=== PATIENT | female | born 1985 | race African-American/Black ===

== ENCOUNTER 2016-12-24 23:04 | Emergency (ER) | payer MEDICARE, OTHER ==
[~2016-12-24] VITALS: Ht 165.1 cm; Wt 95.0 kg
[2016-12-24 23:05] VITALS: BP 132/90; PULSE 94; RESP 16; TEMP 98.8; O2SAT 99
--- NOTE | 2016-12-24 23:44 | PD ---
HPI Chief Complaint: Pain: Acute or Chronic Time Seen by Provider: 23:35 Travel History International Travel<30 days: No Contact w/Intl Traveler<30days: No Traveled to known affect area: No History of Present Illness HPI This is a 31-year-old female with history of schizophrenia who presents for evaluation of vaginal bleeding. Symptoms started this morning. She was concerned that she may have a miscarriage. She says that she recently had unprotected sex. Her last menstrual period was December 02. She does endorse mild pelvic cramps. In addition the patient is complaining of some lower back pain after lifting upper back. Symptoms are mild, aggravated by lifting a bag. She has no other complaints. History is somewhat limited secondary to schizophrenia. PFSH Past Medical History Hx Anticoagulant Therapy: No Blood Disorders: No Anxiety: Yes Depression: Yes Cancer: No Cardiovascular Problems: No Cerebrovascular Accident: No Diabetes: No Diminished Hearing: No Endocrine: No Gastrointestinal Disorders: No Genitourinary: No Headaches: No Immune Disorder: No Musculoskeletal: No Neurologic: No Psychiatric: No Reproductive: No Respiratory: No Immunizations Current: No (UNKNOWN) Schizophrenia: Yes Seizures: No ?: Unknown LMP: 12/02/16 : 6 Para: 6 Miscarriage: 0 : 0 Past Surgical History Section: Yes (X 2) Hysterectomy: No Other Surgery: Yes (hand surgery) Social History Alcohol Use: No Tobacco Use: Yes (1/2 PPD) Substance Use: No Allergies-Medications (Allergen,Severity, Reaction): Coded Allergies: No Known Allergies (Verified , 12/24/16) Reported Meds & Prescriptions Reported Meds & Active Scripts Active No Active Prescriptions or Reported Medications Review of Systems Except as stated in HPI: all other systems reviewed are Neg Physical Exam Narrative GENERAL: Well-nourished female in no acute distress, BMI 35 SKIN: Warm and dry. HEAD: Atraumatic. Normocephalic. EYES: Pupils equal and round. No scleral icterus. No injection or drainage. ENT: No nasal bleeding or discharge. Mucous membranes pink and moist. NECK: Trachea midline. No JVD. CARDIOVASCULAR: Regular rate and rhythm. No murmur appreciated. RESPIRATORY: No accessory muscle use. Clear to auscultation. Breath sounds equal bilaterally. GASTROINTESTINAL: Abdomen soft, non-tender, nondistended. Hepatic and splenic margins not palpable. Pelvic examination performed in the presence of a female nurse: The patient has dried blood on her pants. There is some blood noted in the vaginal canal. There is no abnormal discharge. No cervical motion tenderness or adnexal tenderness. MUSCULOSKELETAL: No obvious deformities. No tenderness to palpation along the neck or back, no CVA tenderness. NEUROLOGICAL: Awake and alert. No obvious cranial nerve deficits. Motor grossly within normal limits. Normal speech. Data Data Last Documented VS Vital Signs Date Time Temp Pulse Resp B/P Pulse Ox O2 Delivery O2 Flow Rate FiO2 12/24/16 23:05 98.8 94 16 132/90 99 Room Air Orders Urinalysis - C+S If Indicated (12/24/16 23:12) Ed Urine Pregnancytest Poc (12/24/16 23:12) Gc And Chlamydia Pcr (12/24/16 23:40) Wet Prep Profile (12/24/16 23:40) Urine Culture (12/24/16 23:15) Azithromycin Powd Pack (Zithromax Powd P (12/25/16 01:30) Ceftriaxone Inj (Rocephin Inj) (12/25/16 01:30) Lidocaine 1% Inj (50 Ml) (Xylocaine 1% I (12/25/16 01:30) Metronidazole (Flagyl) (12/25/16 01:30) Labs Laboratory Tests Test 12/24/16 12/24/16 23:15 23:55 Urine Color YELLOW Urine Turbidity HAZY Urine pH 6.0 Urine Specific [place] 1.033 Urine Protein 30 mg/dL Urine Glucose (UA) NEG mg/dL Urine Ketones TRACE mg/dL Urine Occult Blood MOD Urine Nitrite NEG Urine Bilirubin NEG Urine Urobilinogen 2.0 MG/DL Urine Leukocyte Esterase TRACE Urine RBC /hpf Urine WBC 13 /hpf Urine Squamous Epithelial 3 /hpf Cells Urine Bacteria RARE /hpf Urine Mucus FEW /lpf Microscopic Urinalysis Comment CULTURE INDICATED Clue Cells (Wet Prep) NONE SEEN Vaginal Trichomonas (Wet Prep) PRESENT Vaginal Yeast (Wet Prep) NONE SEEN MDM Medical Decision Making Medical Screen Exam Complete: Yes Emergency Medical Condition: Yes Medical Record Reviewed: Yes Differential Diagnosis Dysmenorrhea, normal menstrual period, pelvic inflammatory disease, retained foreign body, cervicitis, miscarriage, threatened Narrative Course This is a 31-year-old female with history of schizophrenia who presents with one -day history of vaginal bleeding and mild cramping of the pelvic region. She reports that the cramping feels like her menstrual cramps. She reports that her last menstrual period was December 02 and so it appears that she is concerned because this menstrual period Is slightly early. She is a very poor historian secondary to poor thought process from her schizophrenia illness and this has made it difficult to determine her true concerns. A urine test was negative. She also has mild lower back strain after lifting a bag. Examination is completely unremarkable and I suspect that she has a muscle strain. [id number] naproxen or ibuprofen is recommended. Urine analysis reveals blood, likely contaminate, as well as some pyuria so she will be treated pending culture results with Macrobid. Her wet prep is also positive for trichomoniasis and so therefore she is being treated with Flagyl here and also empirically azithromycin and Rocephin pending chlamydia and gonorrhea results. She has no clinical evidence of pelvic inflammatory disease. Stable for discharge. Diagnosis Primary Impression: Trichomoniasis Additional Impressions: Pyuria Lumbar strain Qualified Code: S39.012A - Lumbar strain, initial encounter Additional Instructions: Medication as prescribed. Notify sexual partners of positive trichomoniasis test and have them follow-up with primary care or at the health Department for STD testing. Avoid strenuous activity. Tylenol or Motrin for discomfort. Return for any emergent medical conditions. Med/Other Pt SpecificInfo: Prescription(s) given Scripts Nitrofurantoin Monohydrate Macrocrystals (Macrobid)100 Mg [id number] Mg PO BID 7 Days Ref 0 Prov:Estrada Schulz MD 12/25/16 Disposition: 01 DISCHARGE HOME Condition: Stable Sergey Whitten Dec 24, 2016 23:44
[2016-12-24 23:46] LABS: BACTERIA, URINE RARE /hpf; BLOOD, URINE MOD (NEG); COMMENT (UR) CULTURE INDICATED; CULTURE IF INDICATED CULTURE INDICATED; GLUCOSE,URINE NEG (NEG); KETONE, URINE TRACE mg/dL (NEG); MUCUS URINE FEW /lpf (OCC); NITRITE,URINE NEG (NEG); SQUAMOUS EPITHELIAL CELL URINE 3 /hpf (0-5); URINE COLOR YELLOW (YELLW/STRAW)
[2016-12-25] MEDS ORDERED: AZITHROMYCIN PWD FOR SUSP 1 GM PACKET PO ONE (01:30)
[2016-12-25] MEDS ORDERED: LIDOCAINE HCL 1% 50 ML VIAL IM ONE (01:30)
[2016-12-25] MEDS ORDERED: metroNIDAZOLE 500 MG TAB PO ONE (01:30)
[2016-12-25] MEDS ORDERED: cefTRIAXone 250 MG VIAL IM ONE (01:30)
[2016-12-25] MEDS ORDERED: MACR100C2 PO (01:35)
[2016-12-25 03:16] LABS: CHLAMYDIA PCR NOT DETECTED (NOT DETECT); NEISSERIA PCR NOT DETECTED (NOT DETECT)
== END 2016-12-25 02:10 | disposition home or self-care (01) ==
LOC: NEPK 23:04
DX: A59.9 Trichomoniasis, unspecified (principal); N39.0 Urinary tract infection, site not specified; B96.89 Other specified bacterial agents as the cause of diseases classified elsewhere; S39.012A Strain of muscle, fascia and tendon of lower back, initial encounter; X50.0XXA Overexertion from strenuous movement or load, initial encounter
CPT/HCPCS: 81001; 84703; 87086; 87210; 87491; 87591; 96372; 99284; J0696

== ENCOUNTER 2017-01-30 13:08 | Emergency (ER) | payer MEDICARE ==
[~2017-01-30 13:08] MED LIST: MACR100C2 PO
[2017-01-30 13:10] VITALS: BP 156/90; PULSE 80; RESP 20; TEMP 98.9; O2SAT 99
[2017-01-30] MEDS ORDERED: IBUP800T23 PO (14:28)
--- NOTE | 2017-01-30 14:28 | PD ---
HPI Chief Complaint: Skin Problem Time Seen by Provider: 14:24 Travel History International Travel<30 days: No Contact w/Intl Traveler<30days: No Traveled to known affect area: No History of Present Illness HPI 31-year-old female presents to the emergency Department with complaint of a lump to her left wrist 3 weeks. She says the lump has been there for a while but in the last 3 weeks that has gotten bigger. She reports that it is tender to touch. Denies fever, vomiting. Denies paresthesias, loss of sensation, decreased range of motion, decreased strength to the affected extremity. Has not taken any medications or tried any treatments to repeat her symptoms. No known allergies. Has no other medical complaints. No other modifying factors or associated signs and symptoms. PFSH Past Medical History Hx Anticoagulant Therapy: No Blood Disorders: No Anxiety: Yes Depression: Yes Cancer: No Cardiovascular Problems: No Cerebrovascular Accident: No Diabetes: No Diminished Hearing: No Endocrine: No Gastrointestinal Disorders: No Genitourinary: No Headaches: No Immune Disorder: No Musculoskeletal: No Neurologic: No Psychiatric: No Reproductive: No Respiratory: No Immunizations Current: No (UNKNOWN) Schizophrenia: Yes Seizures: No : 6 Para: 6 Miscarriage: 0 : 0 Past Surgical History Section: Yes (X 2) Hysterectomy: No Other Surgery: Yes (hand surgery) Social History Alcohol Use: No Tobacco Use: Yes (1/2 PPD) Substance Use: No Allergies-Medications (Allergen,Severity, Reaction): Coded Allergies: No Known Allergies (Verified , 01/30/17) Reported Meds & Prescriptions Reported Meds & Active Scripts Active Ibuprofen 800 Mg Tab 800 Mg PO Q6HR PRN Macrobid (Nitrofurantoin Monoh/Nitrofur Macro) 100 Mg Cap 100 Mg PO BID 7 Days Review of Systems Except as stated in HPI: all other systems reviewed are Neg Physical Exam Narrative GENERAL: Well-nourished, well-developed patient, in no acute distress SKIN: There is a soft lump to the dorsal aspect of the left wrist which measures about 1.5 cm in diameter. The area is without erythema or warmth to touch. No signs of infection.. Left wrist is with full range of motion. Left upper extremity is supple and nonsense with 2+ radial pulse and sensory intact; without erythema or edema. HEAD: Atraumatic. Normocephalic. EYES: Pupils equal and round. No scleral icterus. No injection or drainage. ENT: Mucosa pink and moist. Airway patent. NECK: Trachea midline. CARDIOVASCULAR: Regular rate. RESPIRATORY: No accessory muscle use. GASTROINTESTINAL: Round. MUSCULOSKELETAL: No obvious deformities. No clubbing. No cyanosis. No edema. NEUROLOGICAL: Awake and alert. Oriented 3. No obvious cranial nerve deficits. Motor grossly within normal limits. Normal speech. PSYCHIATRIC: Appropriate mood and affect; insight and judgment normal. Data Data Last Documented VS Vital Signs Date Time Temp Pulse Resp B/P Pulse Ox O2 Delivery O2 Flow Rate FiO2 01/30/17 13:10 98.9 80 20 156/90 99 Room Air MDM Medical Decision Making Medical Screen Exam Complete: Yes Emergency Medical Condition: Yes Medical Record Reviewed: Yes Differential Diagnosis Ganglion cyst, contusion, nonspecific lump of rest Narrative Course 31-year-old female with a ganglion cyst to the dorsal aspect of the left wrist. No signs of infection. Instructed patient to follow up with hand surgeon. Ibuprofen prescribed for home. Patient verbalizes understanding and agreement with treatment plan. Patient is medically cleared and stable for discharge. Discussed reasons to return to the emergency department. Instructed patient to follow up with primary care provider. Patient agrees with treatment plan. The patients vital signs are stable and the patient is stable for outpatient follow- up and treatment. Patient discharged home, stable and in no acute distress. Diagnosis Primary Impression: Ganglion cyst Referrals: Hand Surgeon Primary Care Physician Patient Instructions: Ganglion Cysts (ED), General Instructions Departure Forms: Tests/Procedures, Work Release Enter return to work date: January 31, 2017 Additional Instructions: Ibuprofen or Tylenol as directed nausea for pain and inflammation Follow-up with primary care provider Follow-up with hand surgeon Return to the emergency department immediately with worsening of symptoms, , particularly as discussed Med/Other Pt SpecificInfo: Prescription(s) given Scripts Ibuprofen 800 Mg Hbv220 Mg PO Q6HR PRN (PAIN) #30 TAB Ref 0 Prov:Irasema Dc 01/30/17 Disposition: 01 DISCHARGE HOME Condition: Stable Irasema Dc January 30, 2017 14:28
== END 2017-01-30 15:05 | disposition home or self-care (01) ==
LOC: NEPK 13:08
DX: M67.432 Ganglion, left wrist (principal); F17.210 Nicotine dependence, cigarettes, uncomplicated; F20.9 Schizophrenia, unspecified; F41.8 Other specified anxiety disorders
CPT/HCPCS: 99282

== ENCOUNTER 2017-03-30 01:03 | Inpatient (IN) | payer MEDICARE ==
[~2017-03-30] VITALS: Ht 165.1 cm; Wt 127.3 kg
[~2017-03-30 01:03] MED LIST changes: +IBUP800T23 PO
[2017-03-30 02:11] LABS: AMPHETAMINE, URINE NEG (NEG); BARBITURATES, URINE NEG (NEG); COCAINE, URINE NEG (NEG)
[2017-03-30 02:58] LABS: AUTOMATED NEUTROPHIL # 2.9 TH/MM3 (1.8-7.7); BASOPHIL # 0.1 TH/MM3 (0-0.2); BASOPHIL % 0.9 % (0.0-2.0); EOSINOPHIL # 0.4 TH/MM3 (0-0.4); EOSINOPHIL % 6.9 % (0.0-4.0); HEMATOCRIT 35.5 % (35.0-46.0); HEMO FLAGS DIFF FINAL; LYMPH % 39.9 % (9.0-44.0); LYMPHOCYTE # 2.6 TH/MM3 (1.0-4.8); MEAN CELL VOLUME 85.8 FL (80.0-100.0); MEAN CORPUSCULAR HEMOGLOBIN 28.9 PG (27.0-34.0); MEAN CORPUSCULAR HGB CONC 33.7 % (32.0-36.0); MONO % 7.7 % (0.0-8.0); NEUT % 44.6 % (16.0-70.0); PLATELET COUNT 245 TH/MM3 (150-450); RED BLOOD COUNT 4.14 MIL/MM3 (4.00-5.30); RED CELL DISTRIBUTION WIDTH 15.1 % (11.6-17.2); WHITE BLOOD COUNT 6.4 TH/MM3 (4.0-11.0)
[2017-03-30 03:13] LABS: ALT (GPT) 28 U/L (10-53); ANION GAP 7 MEQ/L (5-15); AST (GOT) 16 U/L (15-37); BICARBONATE 26.5 MEQ/L (21.0-32.0); BLOOD UREA NITROGEN 10 MG/DL (7-18); CHLORIDE 109 MEQ/L (98-107); GLOMERULAR FILTRATION RATE 67 ML/MIN (>89); POTASSIUM 3.6 MEQ/L (3.5-5.1); SODIUM (NA) 142 MEQ/L (136-145)
[2017-03-30 03:15] LABS: ACETAMINOPHEN LESS THAN 2.0 MCG/ML (10.0-30.0); ALKALINE PHOSPHATASE 115 U/L (45-117); TOTAL BILIRUBIN ADULT 0.1 MG/DL (0.2-1.0)
--- NOTE | 2017-03-30 04:29 | PD ---
HPI Chief Complaint: Psychiatric Symptoms Time Seen by Provider: 04:18 Travel History International Travel<30 days: No Contact w/Intl Traveler<30days: No Traveled to known affect area: No History of Present Illness HPI 31-year-old black female presents to emergency department under a [place] act by PD. The patient was found sitting on the sun. She appeared to be unable to care for herself and therefore she was placed under [place] act. The patient here states that she had been living in a apartment with poor water and lights that did not work properly. She had decided to leave. The patient has packed her bags and left. The patient denies any suicidal or homicidal ideation. The patient's mother lives in a [facility]. She has or others and liver [facility]. The patient is a poor historian. She appears to be somewhat disorganized. Patient has poor insight and judgment. She does not appear to have the capacity to care for herself. She does state that she has a caregiver who is her payee. PFSH Past Medical History Hx Anticoagulant Therapy: No Blood Disorders: No Anxiety: Yes Depression: Yes Cancer: No Cardiovascular Problems: No Cerebrovascular Accident: No Diabetes: No Diminished Hearing: No Endocrine: No Gastrointestinal Disorders: No Genitourinary: No Headaches: No Immune Disorder: No Musculoskeletal: No Neurologic: No Psychiatric: No Reproductive: No Respiratory: No Immunizations Current: No (UNKNOWN) Schizophrenia: Yes Seizures: No : 6 Para: 6 Miscarriage: 0 : 0 Past Surgical History Section: Yes (X 2) Hysterectomy: No Other Surgery: Yes (hand surgery) Social History Alcohol Use: No Tobacco Use: Yes (1/2 PPD) Substance Use: No Allergies-Medications (Allergen,Severity, Reaction): Coded Allergies: No Known Allergies (Verified , 01/30/17) Reported Meds & Prescriptions Reported Meds & Active Scripts Active Ibuprofen 800 Mg Tab 800 Mg PO Q6HR PRN Macrobid (Nitrofurantoin Monoh/Nitrofur Macro) 100 Mg Cap 100 Mg PO BID 7 Days Review of Systems ROS Limitations: Poor Historian Except as stated in HPI: all other systems reviewed are Neg Physical Exam Narrative GENERAL: Well-nourished, well-developed patient. SKIN: Warm and dry. HEAD: Normocephalic and atraumatic. EYES: No scleral icterus. No injection or drainage. ENT: No nasal drainage noted. Mucous membranes pink. Airway patent. NECK: Supple, trachea midline. Moves head freely without obvious discomfort. CARDIOVASCULAR: Regular rate and rhythm without murmurs, gallops, or rubs. RESPIRATORY: Breath sounds equal bilaterally. No accessory muscle use. GASTROINTESTINAL: Abdomen soft, non-tender, nondistended. EXTREMITIES: No cyanosis or edema. BACK: Nontender without obvious deformity. No CVA tenderness. NEURO: Patient is alert and oriented. no sensorimotor deficits. Nonfocal. Normal speech. PSYCH: No delusions. No auditory or visual hallucinations. Patient has poor insight and judgment. She answers questions slowly. Data Data Orders Diet Regular Basic (03/30/17 Breakfast) Complete Blood Count With Diff (03/30/17 01:23) Comprehensive Metabolic Panel (03/30/17 01:23) Ed Urine Pregnancytest Poc (03/30/17 01:23) Psych Screen (03/30/17 01:23) Drug Screen, Random Urine (03/30/17 01:23) Alcohol (Ethanol) (03/30/17 01:23) Salicylates (Aspirin) (03/30/17 01:23) Tylenol (Acetaminophen) (03/30/17 01:23) Labs Laboratory Tests Test 03/30/17 03/30/17 01:30 02:45 Urine Opiates Screen NEG Urine Barbiturates Screen NEG Urine Amphetamines Screen NEG Urine Benzodiazepines Screen NEG Urine Cocaine Screen NEG Urine Cannabinoids Screen POS White Blood Count 6.4 TH/MM3 Red Blood Count 4.14 MIL/MM3 Hemoglobin 12.0 GM/DL Hematocrit 35.5 % Mean Corpuscular Volume 85.8 FL Mean Corpuscular Hemoglobin 28.9 PG Mean Corpuscular Hemoglobin 33.7 % Concent Red Cell Distribution Width 15.1 % Platelet Count 245 TH/MM3 Mean Platelet Volume 8.5 FL Neutrophils (%) (Auto) 44.6 % Lymphocytes (%) (Auto) 39.9 % Monocytes (%) (Auto) 7.7 % Eosinophils (%) (Auto) 6.9 % Basophils (%) (Auto) 0.9 % Neutrophils # (Auto) 2.9 TH/MM3 Lymphocytes # (Auto) 2.6 TH/MM3 Monocytes # (Auto) 0.5 TH/MM3 Eosinophils # (Auto) 0.4 TH/MM3 Basophils # (Auto) 0.1 TH/MM3 CBC Comment DIFF FINAL Differential Comment Sodium Level 142 MEQ/L Potassium Level 3.6 MEQ/L Chloride Level 109 MEQ/L Carbon Dioxide Level 26.5 MEQ/L Anion Gap 7 MEQ/L Blood Urea Nitrogen 10 MG/DL Creatinine 1.15 MG/DL Estimat Glomerular Filtration 67 ML/MIN Rate Random Glucose 86 MG/DL Calcium Level 8.7 MG/DL Total Bilirubin 0.1 MG/DL Aspartate Amino Transf 16 U/L (AST/SGOT) Alanine Aminotransferase 28 U/L (ALT/SGPT) Alkaline Phosphatase 115 U/L Total Protein 7.0 GM/DL Albumin 3.4 GM/DL Salicylates Level 3.1 MG/DL Acetaminophen Level LESS THAN 2.0 MCG/ML Ethyl Alcohol Level LESS THAN 3 MG/DL MDM Medical Decision Making Medical Screen Exam Complete: Yes Emergency Medical Condition: Yes Medical Record Reviewed: Yes Interpretation(s) Laboratory Tests Test 03/30/17 03/30/17 01:30 02:45 Urine Opiates Screen NEG Urine Barbiturates Screen NEG Urine Amphetamines Screen NEG Urine Benzodiazepines Screen NEG Urine Cocaine Screen NEG Urine Cannabinoids Screen POS White Blood Count 6.4 TH/MM3 Red Blood Count 4.14 MIL/MM3 Hemoglobin 12.0 GM/DL Hematocrit 35.5 % Mean Corpuscular Volume 85.8 FL Mean Corpuscular Hemoglobin 28.9 PG Mean Corpuscular Hemoglobin 33.7 % Concent Red Cell Distribution Width 15.1 % Platelet Count 245 TH/MM3 Mean Platelet Volume 8.5 FL Neutrophils (%) (Auto) 44.6 % Lymphocytes (%) (Auto) 39.9 % Monocytes (%) (Auto) 7.7 % Eosinophils (%) (Auto) 6.9 % Basophils (%) (Auto) 0.9 % Neutrophils # (Auto) 2.9 TH/MM3 Lymphocytes # (Auto) 2.6 TH/MM3 Monocytes # (Auto) 0.5 TH/MM3 Eosinophils # (Auto) 0.4 TH/MM3 Basophils # (Auto) 0.1 TH/MM3 CBC Comment DIFF FINAL Differential Comment Sodium Level 142 MEQ/L Potassium Level 3.6 MEQ/L Chloride Level 109 MEQ/L Carbon Dioxide Level 26.5 MEQ/L Anion Gap 7 MEQ/L Blood Urea Nitrogen 10 MG/DL Creatinine 1.15 MG/DL Estimat Glomerular Filtration 67 ML/MIN Rate Random Glucose 86 MG/DL Calcium Level 8.7 MG/DL Total Bilirubin 0.1 MG/DL Aspartate Amino Transf 16 U/L (AST/SGOT) Alanine Aminotransferase 28 U/L (ALT/SGPT) Alkaline Phosphatase 115 U/L Total Protein 7.0 GM/DL Albumin 3.4 GM/DL Salicylates Level 3.1 MG/DL Acetaminophen Level LESS THAN 2.0 MCG/ML Ethyl Alcohol Level LESS THAN 3 MG/DL Differential Diagnosis MDM: High Differential diagnoses: Schizophrenia, schizoaffective disorder, bipolar, anxiety, depression, adjustment reaction, mood disorder NOS, ODD, depressive disorder NOS, dementia, dementia with agitation, psychosis NOS, substance induced mood disorder, intermittent explosive disorder, Asperger syndrome, infection,electrolyte abnormality, malingering. Narrative Course Mental health screening discussed with the patient. Psychiatric screen ordered. The patient appears to be unable to care for herself. She appears to low functioning and unable to make clinical decisions. This is medical clearance for psychiatric admission, inability to care for herself Diagnosis Primary Impression: Medical clearance for psychiatric admission Additional Impression: inability to care for herself Condition: Stable Francisco J Bowman Mar 30, 2017 04:29
[2017-03-30 06:07] VITALS: BP 127/81; PULSE 66; RESP 19; O2SAT 99
[2017-03-30 13:52] VITALS: BP 128/81; PULSE 81; RESP 18; TEMP 98.6; O2SAT 97
--- NOTE | 2017-03-30 15:52 | PD ---
History of Present Illness Chief Complaint: Psychiatric Symptoms Time Seen by Provider: 15:30 Travel History International Travel<30 Days: No Contact w/Intl Traveler<30days: No Known affected area: No Legal Status Legal Status: Rowe Act Rowe Act Signed By: Mira Echavarria Rowe Act Comment: 03/29/2017 1430 PM History of Present Illness: History of Present Illness HPI 31-year-old black female with hx of schizophrenia who presents to emergency department under a Rowe act initiated by PD. The BA alleges that the patient had been found sitting in the sun for approximately 6 hours with out seeking halfway and that she was unable to answer questions posed to her. The patient reported to ED provider that she had been living in a apartment with poor water and lights that did not work properly. The patient packed her bags and left the apartment. Current toxicology is positive for cannabinoids. EMR is reviewed. She has had previous admissions to [facility] dating back to 2005. Her last admission was in 2014. In 2016 she was under a BA and was transferred to [facility]. Patient is seen in J pod. She is awake, obese female who is wearing hospital gown. Speech is low tone and difficult to understand. Her responses are sparse and with delay in her response. She maintains an intimidating and intense eye contact. Appears internally preoccupied and suspicious . She tells me that she [facility] [place] [facility] and that she was waiting for a ride, but no other information provided. She does not provide any person that we can contact for collateral information. PFSH Past Medical History Hx Anticoagulant Therapy: No Blood Disorders: No Anxiety: Yes Depression: Yes Cancer: No Cardiovascular Problems: No Cerebrovascular Accident: No Diabetes: No Diminished Hearing: No Endocrine: No Gastrointestinal Disorders: No Genitourinary: No Headaches: No Immune Disorder: No Musculoskeletal: No Neurologic: No Psychiatric: No Reproductive: No Respiratory: No Immunizations Current: No (UNKNOWN) Schizophrenia: Yes Seizures: No : 6 Para: 6 Miscarriage: 0 : 0 Past Surgical History Section: Yes (X 2) Hysterectomy: No Other Surgery: Yes (hand surgery) Psychiatric History Psychiatric History Hx Psychiatric Treatment: Hx of bipolar disorder and schizophrenia. Last [facility] visit Jul 09, 2016 for schizophrenia. History of Inpatient Treatment: Yes (Last hosp at [facility] in 2014. ) Guns or firearms in home: No (unknown) Social History Does not provide any information. Hx Alcohol Use: No Hx Tobacco Use: Yes (1/2 PPD) Hx Substance Use: Yes Substance Use Type: Marijuana, Nicotine/Cigarettes Hx of Substance Use Treatment: No Family Psychiatric History Does not provide any information Allergies-Medications (Allergen,Severity, Reaction): Coded Allergies: No Known Allergies (Verified , 01/30/17) Reported Meds & Prescriptions Reported Meds & Active Scripts Active Ibuprofen 800 Mg Tab 800 Mg PO Q6HR PRN Macrobid (Nitrofurantoin Monoh/Nitrofur Macro) 100 Mg Cap 100 Mg PO BID 7 Days Review of Systems ROS Limitations: Uncooperative Exam Alert: Yes [place]: Person, Place Mood: Other Affect: Restricted Speech: Clear (minimal responses. ) Eye Contact: Staring Memory Intact: Comment (Unable to test) Delusions: Yes (appears suspicious and paranoid) Suicidal: Ideation (she does nto answer) Homicidal: Ideation (does nto answer ) Insight/Judgement Poor. Poor. MDM Medical Decision Making Medical Record Reviewed: Yes Assessment/Plan 31 year old female with history of schizophrenia who is under a BA initiated by [employer] after it was reported that she had been sitting outside in the sun for over 6 hours without making any attempt at sheltering herself. She was unable to answer questions and is felt she was unable to care for herself. A this time she remains nearly mute and has not provided any information or provided any telephone number in order for us to obtain collateral information. She appears paranoid and internally preoccupied. At this time I am unable to discharge this patient as it would be be unsafe to do so. She appears to be psychotic and unable to care for herself. Admit for further observation, to stabilize as well as to maintain her safety . Orders Diet Regular Basic (03/30/17 Breakfast) Complete Blood Count With Diff (03/30/17 01:23) Comprehensive Metabolic Panel (03/30/17 01:23) Ed Urine Pregnancytest Poc (03/30/17 01:23) Psych Screen (03/30/17 01:23) Drug Screen, Random Urine (03/30/17 01:23) Alcohol (Ethanol) (03/30/17 01:23) Salicylates (Aspirin) (03/30/17 01:23) Tylenol (Acetaminophen) (03/30/17 01:23) Diet Regular Basic (03/30/17 Lunch) Results Vital Signs Date Time Temp Pulse Resp B/P Pulse Ox O2 Delivery O2 Flow Rate FiO2 03/30/17 13:52 98.6 81 18 128/81 97 03/30/17 06:07 66 19 127/81 99 Room Air Laboratory Tests Test 03/30/17 03/30/17 01:30 02:45 Urine Opiates Screen NEG Urine Barbiturates Screen NEG Urine Amphetamines Screen NEG Urine Benzodiazepines Screen NEG Urine Cocaine Screen NEG Urine Cannabinoids Screen POS White Blood Count 6.4 Red Blood Count 4.14 Hemoglobin 12.0 Hematocrit 35.5 Mean Corpuscular Volume 85.8 Mean Corpuscular Hemoglobin 28.9 Mean Corpuscular Hemoglobin 33.7 Concent Red Cell Distribution Width 15.1 Platelet Count 245 Mean Platelet Volume 8.5 Neutrophils (%) (Auto) 44.6 Lymphocytes (%) (Auto) 39.9 Monocytes (%) (Auto) 7.7 Eosinophils (%) (Auto) 6.9 Basophils (%) (Auto) 0.9 Neutrophils # (Auto) 2.9 Lymphocytes # (Auto) 2.6 Monocytes # (Auto) 0.5 Eosinophils # (Auto) 0.4 Basophils # (Auto) 0.1 CBC Comment DIFF FINAL Differential Comment Sodium Level 142 Potassium Level 3.6 Chloride Level 109 Carbon Dioxide Level 26.5 Anion Gap 7 Blood Urea Nitrogen 10 Creatinine 1.15 Estimat Glomerular Filtration 67 Rate Random Glucose 86 Calcium Level 8.7 Total Bilirubin 0.1 Aspartate Amino Transf 16 (AST/SGOT) Alanine Aminotransferase 28 (ALT/SGPT) Alkaline Phosphatase 115 Total Protein 7.0 Albumin 3.4 Salicylates Level 3.1 Acetaminophen Level LESS THAN 2.0 Ethyl Alcohol Level LESS THAN 3 Diagnosis Primary Impression: inability to care for herself Additional Impression: Schizophrenia Admitting Information Admitting Physician Requests: Admit Condition: Stable Problem Qualifiers Additional Impression: Schizophrenia Qualified Code: F20.0 - Paranoid schizophrenia Layla Christianson [facility] Mar 30, 2017 15:52
[2017-03-30] MEDS ORDERED: MAGNESIUM HYDROXIDE SUSP 30 ML CUP PO PRN (16:00)
[2017-03-30] MEDS ORDERED: ACETAMINOPHEN 325 MG TAB PO PRN (16:00)
[2017-03-30] MEDS ORDERED: ALUMINUM/MAGNESIUM/SIMETH 30 ML CUP PO PRN (16:00)
[2017-03-30 18:00] VITALS: BP 100/60; PULSE 67; RESP 16; TEMP 98.6; O2SAT 100
[2017-03-31 05:34] VITALS: BP 99/64; PULSE 72; RESP 16; TEMP 97.9; O2SAT 97
--- NOTE | 2017-03-31 11:20 | HHI.HP ---
Provisional Diagnosis Admission Date Mar 30, 2017 at 15:55 [place] I. 1. Schizophrenia, paranoid type, acute exacerbation 2. Cannabis use, rule out use disorder [place] II. Deferred [place] V. GAF is 30 presently Certification of Person's Competence To Provide Express and Informed Consent I have personally examined Estrella Moran , a person being served at [facility] on, Mar 31, 2017 11:20. Express and informed consent means consent voluntarily given in writing, by a competent person, after sufficient explanation and disclosure of the subject matter involved to enable the person to make a knowing and willful decision without any element of force, fraud, deceit, duress, or other form of constraint or coercion. This person is 18 years of age or older, is not now known to be incompetent to consent to treatment with a guardian advocate, and does not have a health care surrogate or proxy currently making medical treatment decisions. I have found this person to be one of the following: [] Competent to provide express and informed consent, as defined above, for voluntary admission to this facility and is competent to provide express and informed consent for treatment. He/she has the consistent capacity to make well reasoned, willful, and knowing decisions concerning his or her medical or mental health treatment. The person fully and consistently understands the purpose of the admission for examination/placement and is fully capable of personally exercising all rights assured [place] [] Incompetent to provide express and informed consent to voluntary admission, and this is incompetent to provide express and informed consent to treatment. The person must be transferred to involuntary status and a petition for a guardian advocate filed with the Circuit Court. [x] Refusing to provide express and informed consent to voluntary admission but is competent to provide express and informed consent for treatment. The person must be discharged or transferred to involuntary status. Form shall be completed within 24 hours of a person's arrival at the receiving facility and filed in the clinical record of each person: 1. Admitted on a voluntary basis 2. Permitted to provide express and informed consent to his/her own treatment 3. Allowed to transfer from involuntary to voluntary status 4. Prior to permitting a person to consent to his or her own treatment after having been previously found incompetent to consent to treatment. History of Present Illness Capacity: Has Capacity HPI Ms. Moran is a 31-year-old female with a chart history of schizophrenia who presents under a Rowe act by law enforcement alleging that the patient was sitting in the sun for 6 hours making no effort to shade herself. Evaluated by the psychiatric nurse practitioner recommended admission to the inpatient psychiatric unit. Reviewing the electronic medical record, I note that the patient was admitted most recently under Dr. Zelaya in 2014. Counselor has obtained records from [facility], and it appears that the patient was most recently prescribed Geodon, Remeron and Cogentin, although these medications are from 2015 as well. Patient seen and examined with nurse and counselor. Chart reviewed. Case discussed with nursing staff. On my examination today, the patient presents as psychomotor slowed with significant thought blocking. She is internally preoccupied but when asked about AVH, she replies "not really." She is quite concrete in her responses. She is guarded and I suspect paranoid, but it is difficult to assess given her thought disorder. Her affect is quite flat, but I can elicit no depressive or hypomanic/manic symptoms at this time. She does say that she is presently "psychotic." The remainder of the psychiatric ROS is negative. Past psychiatric history: Patient has psychiatric admissions within our system, most recently in 2014 as I said. She denies a history of suicide attempts. She does report previous medication with Geodon, Abilify and Cogentin but it is unclear if she has been recently adherent with psychotropic medications. Family history: Patient reports a history of schizophrenia and her family, and when I ask which family members are affected she says "my family." Chemical dependency history: The patient reports that she smokes a pack a day of cigarettes but otherwise denies substance use. Her urine toxicology is positive for cannabinoids. Social history: Patient reports that she lives in a house although the counselor informs me that the patient is likely homeless. It is difficult to ascertain her marital status but she says that she has 3 children. She endorses some sort of legal difficulties but it is not clear what. Unable to obtain further social history as a consequence of her thought disorder. Review of Systems ROS Limitations: Psychotic, Poor Historian Except as stated in HPI: all other systems reviewed are Neg Past Psych History Psychological trauma history No reported trauma history to me Violence risk - others (6 mos) Indeterminate. Patient is psychotic and unpredictable Violence risk - self (6 mos) Indeterminate. Patient is psychotic and unpredictable. Patient also may have significant functional impairments as a consequence of her psychosis and was noted by the initiating officer to be laying in the sun and making no efforts at obtaining care home. Substance Abuse History Drugs/Alcohol past 12 months See above Past Family Social History Coded Allergies: No Known Allergies (Verified , 01/30/17) Past Medical History See electronic medical record Active Scripts Ibuprofen 800 Mg [id number] Mg PO Q6HR PRN (PAIN) #30 TAB Ref 0 Prov:VandaIrasema Burton BUILDING SURVEYOR 01/30/17 Nitrofurantoin Monohydrate Macrocrystals (Macrobid)100 Mg [id number] Mg PO BID 7 Days Ref 0 Prov:Estrada Schulz MD 12/25/16 Current Medications Medications (Trade) Dose Ordered Sig/Sandra Route Start Time Stop Time Status Last Admin (Tylenol) 650 mg Q4H PRN PO 03/30/17 16:00 (Milk Of Magnesia Liq) 30 ml DAILY PRN PO 03/30/17 16:00 (Mag-Al Plus Susp Liq) 30 ml Q6H PRN PO 03/30/17 16:00 Family History See above Social History See above Patient's Strengths (min. 2) In a monitored setting. Verbally fluent. Physical Exam Physical examination completed by ED provider. On my examination today, the patient appears to be in no acute physical distress. No motor abnormalities noted except that the patient as fairly psychomotor slowed. Laboratories and vital signs reviewed: Vital Signs Vital Signs Date Time Temp Pulse Resp B/P Pulse Ox O2 Delivery O2 Flow Rate FiO2 03/31/17 05:34 97.9 72 16 99/64 97 03/30/17 06:07 Room Air I/O 03/30/17 03/30/17 03/31/17 08:00 16:00 00:00 Intake Total 500 ml Balance 500 ml Lab Results Item Value Date Time White Blood Count 6.4 TH/MM3 03/30/17 0245 Hemoglobin 12.0 GM/DL 03/30/17 0245 Platelet Count 245 TH/MM3 03/30/17 0245 Sodium Level 142 MEQ/L 03/30/17 0245 Potassium Level 3.6 MEQ/L 03/30/17 0245 Chloride Level 109 MEQ/L H 03/30/17 0245 Carbon Dioxide Level 26.5 MEQ/L 03/30/17 0245 Blood Urea Nitrogen 10 MG/DL 03/30/17 0245 Creatinine 1.15 MG/DL H 03/30/17 0245 Aspartate Amino Transf (AST/SGOT) 16 U/L 03/30/17 0245 Alanine Aminotransferase (ALT/SGPT) 28 U/L 03/30/17 0245 Alkaline Phosphatase 115 U/L 03/30/17 0245 Urine Cannabinoids Screen POS H 03/30/17 0130 ED [id number] test was negative. Mental Status Examination Patient is in hospital gown. She is somewhat disheveled but appears to be maintaining basic hygiene. She is awake and alert and oriented to person at least. Psychomotor slowed but no other motor abnormalities noted. Paucity of speech with significant speech delay. Language and fund of knowledge are difficult to assess given thought disorder. Focus and concentration are impaired. Memory difficult to assess because of thought disorder. Difficult to assess mood but affect is quite flat. Thought process slowed with significant thought blocking. Patient is guarded, possibly some underlying paranoia. Patient appears frankly internally stimulated. Does not describe any suicidal or homicidal ideation but is unreliable to contract for safety. Insight and judgment are presently poor. Assessment & Plan Problem List: (1) Schizophrenia ICD Code: F20.9 (2) Use of cannabis ICD Code: F12.90 Assessment & Plan This is a 31-year-old female with psychiatric history as detailed above who presents under a Rowe act. Patient appears presently to be experiencing a severe exacerbation of her underlying psychotic illness. I wonder if there is not some degree of medication nonadherence. There may also be a substance-induced component as the patient's urine toxicology is positive for cannabinoids. In any event, the patient presently requires psychiatric admission for safety, observation and stabilization. Admit inpatient. Patient is presently declining to consent for voluntary admission and so I will initiate a petition for involuntary psychiatric hospitalization. She does retain capacity at this time to consent for medications. Check BMP, lipid panel and hemoglobin A1c in the morning. Initiate Geodon 40 mg twice daily with meals with plans to titrate to effect. Ativan as needed for anxiety, Cogentin as needed for EPS, Benadryl as needed for sleep. Vitals every shift. Counselor to see and obtain collateral. Disposition planning. Estimated length of stay: 7-9 days. Discharge Planning Pending psychiatric stabilization. Request HC Surrog/Guard Advoc?: No (not at this time.) Problem Qualifiers (1) Schizophrenia: Qualified Code: F20.0 - Paranoid schizophrenia Ion Perez MD Mar 31, 2017 11:20
[2017-03-31] MEDS ORDERED: BENZTROPINE MESYLATE 1 MG TAB PO PRN (14:00)
[2017-03-31] MEDS ORDERED: diphenhydrAMINE HCL 50 MG CAP PO PRN (14:00)
[2017-03-31] MEDS ORDERED: BENZTROPINE MESYLATE 2 MG/2 ML VIAL IM PRN (14:00)
[2017-03-31] MEDS ORDERED: LORazepam 2 MG/ML VIAL IM PRN (14:00)
[2017-03-31] MEDS ORDERED: LORazepam 1 MG TAB PO PRN (14:00)
[2017-03-31] MEDS: ZIPRASIDONE HCL 40 MG CAP PO SCH (17:31)
[2017-03-31 18:00] VITALS: BP 140/72; PULSE 85; RESP 18
[2017-04-01 05:47] VITALS: BP 111/66; PULSE 53; RESP 18; TEMP 97.5; O2SAT 98
[2017-04-01] MEDS: ZIPRASIDONE HCL 40 MG CAP PO SCH ×2 (08:20→16:57)
--- NOTE | 2017-04-01 11:23 | HHI.PYPN ---
Subjective Remarks This is a request for second opinion. Patient was seen, admission note reviewed , case discussed with nursing. Patient is oppositional, flat and apathetic. She has poor insight and says she does not remember what happened. Admits to auditory hallucinations but would not state the content. Says that somebody is following her but she could not tell me who. His compliant with her medications and tolerating them well. She denies suicidal ideation intent or plan Objective Alert: Yes [place]: Person, Place Mood: Oppositional Affect: Flat Memory Intact: Comment (Unable to test) Hallucinations: Auditory (nonspecific) Delusions: Yes (appears suspicious and paranoid) Delusion Type: Paranoid Suicidal: Ideation (denies) Homicidal: Ideation (denies) Insight/Judgment Poor Vitals/IOs Vital Signs Date Time Temp Pulse Resp B/P Pulse Ox O2 Delivery O2 Flow Rate FiO2 04/01/17 05:47 97.5 53 18 111/66 98 03/30/17 06:07 Room Air Assessment & Plan Problem List: (1) Schizophrenia ICD Code: F20.9 (2) Use of cannabis ICD Code: F12.90 Assessment & Plan I agree with first opinion to continue petition. Criteria include acute psychosis Justification for Cont. Inpt. Patient will decompensate in a less restrictive setting Request HC Surrog/Guard Advoc?: No (not at this time.) Problem Qualifiers (1) Schizophrenia: Qualified Code: F20.0 - Paranoid schizophrenia Glenn Fuentes DO Apr 01, 2017 11:23
[2017-04-01 18:40] VITALS: BP 135/75; PULSE 67; RESP 20; TEMP 98.1; O2SAT 99
[2017-04-02 06:12] VITALS: BP 118/80; PULSE 69; RESP 20; TEMP 98; O2SAT 100
[2017-04-02] MEDS: ZIPRASIDONE HCL 60 MG CAP PO SCH ×2 (09:00→18:00)
[2017-04-02 15:26] VITALS: BP 152/74; PULSE 66; RESP 18; TEMP 97.8
--- NOTE | 2017-04-02 15:34 | HHI.PYPN ---
Subjective Remarks Patient was seen and case discussed with nursing. Patient is disorganized and responding to internal stimuli. Very evident thought blocking. Towards the end of the interview patient smiles admits she is talking to her voices. She would only reveal that they're calling her lazy. Affect is somewhat brighter. Behaving well on the unit Objective Alert: Yes [place]: Person, Place Mood: Oppositional Affect: Restricted Memory Intact: Comment (Unable to test) Hallucinations: Auditory (calling her lazy) Delusions: Yes (appears suspicious and paranoid) Delusion Type: Paranoid (responding to internal stimuli) Suicidal: Ideation (denies) Homicidal: Ideation (denies) Insight/Judgment Poor Vitals/IOs Vital Signs Date Time Temp Pulse Resp B/P Pulse Ox O2 Delivery O2 Flow Rate FiO2 04/02/17 15:26 97.8 66 18 152/74 04/02/17 06:12 100 03/30/17 06:07 Room Air Assessment & Plan Problem List: (1) Schizophrenia ICD Code: F20.9 (2) Use of cannabis ICD Code: F12.90 Assessment & Plan Continue current treatment plan Justification for Cont. Inpt. Patient would decompensate in a less restrictive setting Request HC Surrog/Guard Advoc?: No (not at this time.) Problem Qualifiers (1) Schizophrenia: Qualified Code: F20.0 - Paranoid schizophrenia Glenn Fuentes DO Apr 02, 2017 15:34
[2017-04-02 20:44] VITALS: BP 152/74; PULSE 66; RESP 18; TEMP 97.8; O2SAT 100
[2017-04-03 06:37] VITALS: BP 90/69; PULSE 88; RESP 16; TEMP 97.1; O2SAT 98
[2017-04-03] MEDS: ZIPRASIDONE HCL 60 MG CAP PO SCH (09:04)
[2017-04-03] MEDS ORDERED: GEOD60CA PO (12:53)
--- NOTE | 2017-04-03 12:53 | HHI.DS ---
Psychiatry Discharge Summary Inpatient Psychiatric care?: Yes Advance Directive: No Reason Not Provided: REFUSED Mental Health AdvanceDirective: No Health Care Proxy: No Admission Admission Date Mar 30, 2017 at 15:55 Admission Diagnosis: (1) Schizophrenia ICD Code: F20.9 (2) Use of cannabis ICD Code: F12.90 Brief History Ms. Moran is a 31-year-old female with a chart history of schizophrenia who presents under a [place] act by law enforcement alleging that the patient was sitting in the sun for 6 hours making no effort to shade herself. Evaluated by the psychiatric nurse practitioner recommended admission to the inpatient psychiatric unit. Reviewing the electronic medical record, I note that the patient was admitted most recently under Dr. Zelaya in 2014. Counselor has obtained records from [facility], and it appears that the patient was most recently prescribed Geodon, Remeron and Cogentin, although these medications are from 2015 as well. Patient seen and examined with nurse and counselor. Chart reviewed. Case discussed with nursing staff. On my examination today, the patient presents as psychomotor slowed with significant thought blocking. She is internally preoccupied but when asked about AVH, she replies "not really." She is quite concrete in her responses. She is guarded and I suspect paranoid, but it is difficult to assess given her thought disorder. Her affect is quite flat, but I can elicit no depressive or hypomanic/manic symptoms at this time. She does say that she is presently "psychotic." The remainder of the psychiatric ROS is negative. Past psychiatric history: Patient has psychiatric admissions within our system, most recently in 2014 as I said. She denies a history of suicide attempts. She does report previous medication with Geodon, Abilify and Cogentin but it is unclear if she has been recently adherent with psychotropic medications. Family history: Patient reports a history of schizophrenia and her family, and when I ask which family members are affected she says "my family." Chemical dependency history: The patient reports that she smokes a pack a day of cigarettes but otherwise denies substance use. Her urine toxicology is positive for cannabinoids. Social history: Patient reports that she lives in a house although the counselor informs me that the patient is likely homeless. It is difficult to ascertain her marital status but she says that she has 3 children. She endorses some sort of legal difficulties but it is not clear what. Unable to obtain further social history as a consequence of her thought disorder. Tobacco Use In Past 30 Days: 5 or More Cigarettes/Day Alcohol Use: Monthly or Less Hospital Course Patient was admitted to a locked, inpatient psychiatric unit. Appropriate precautions were in place throughout patient's hospital stay. Patient was seen and examined daily on the unit by psychiatry and also visited by counselor. Psychotropic medications were adjusted. Patient tolerated medication changes well without side effects. Patient had improvement in presenting psychiatric symptomatology. In particular psychosis improved and affect became more reactive. There was no evidence of any suicidal or homicidal behavior on the inpatient unit. The patient remained in good behavioral control and was compliant with medications. On the day of discharge: Patient seen and examined with nurse and counselor. Chart reviewed. Case discussed with nursing staff. Per nursing staff, the patient has been no behavioral issue overnight. On my examination today, the patient is calm and cooperative with evaluation. She is requesting discharge from the psychiatric unit today. She remains somewhat internally preoccupied with subtle ongoing thought blocking, although this is much improved versus initial presentation. She denies any audiovisual hallucinations. I can elicit no delusional material. Her affect is more reactive and she does smile intervals. No hypomanic or manic symptoms or depressive symptoms elicited. She denies any suicidal or homicidal ideation, intent or plan on direct questioning and contracts for safety. Weighing the relevant factors and based on the available evidence, I horse show judge to a reasonable degree of medical certainty that the patient does not meet criteria for ongoing involuntary psychiatric hospitalization at this time as there has been no evidence of imminent risk of harm to self or others, nor is there evidence of significant functional impairment that would necessitate ongoing inpatient hospital stay. That having been said, I do believe the patient would benefit from additional inpatient stabilization and also that we could use this time to try to place the patient in more stable housing as she is presently homeless. I have given the patient my strongest recommendation that she remain on the unit , but she has declined. Given that I have no basis to retain this patient in voluntarily at this time and given that she is insisting on discharge today, I have no choice but to discharge the patient from the inpatient psychiatric unit with psychiatric follow-up as arranged by counselor. The patient is also to follow-up with primary care. Patient to abstain from substances of abuse. I have counseled the patient to return to the psychiatric emergency room or concerning psychiatric symptoms as part of the general safety plan. Results Blood Pressure 90 / 69 Vital Signs Date Time Temp Pulse Resp B/P Pulse Ox O2 Delivery O2 Flow Rate FiO2 04/03/17 06:37 97.1 88 16 90/69 98 Item Value Date Time White Blood Count 6.4 TH/MM3 03/30/17 0245 Hemoglobin 12.0 GM/DL 03/30/17 0245 Platelet Count 245 TH/MM3 03/30/17 0245 Sodium Level 142 MEQ/L 03/30/17 0245 Potassium Level 3.6 MEQ/L 03/30/17 0245 Chloride Level 109 MEQ/L H 03/30/17 0245 Carbon Dioxide Level 26.5 MEQ/L 03/30/17 0245 Blood Urea Nitrogen 10 MG/DL 03/30/17 0245 Creatinine 1.15 MG/DL H 03/30/17 0245 Aspartate Amino Transf (AST/SGOT) 16 U/L 03/30/17 0245 Alanine Aminotransferase (ALT/SGPT) 28 U/L 03/30/17 0245 Alkaline Phosphatase 115 U/L 03/30/17 0245 Urine Cannabinoids Screen POS H 03/30/17 0130 Ethyl Alcohol Level LESS THAN 3 MG/DL 03/30/17 0245 Summary of Procedures None done Imaging None done Pending results at discharge: No Medications # of Antipsychotic meds at D/C: 1 Approp Antipsych med options 1 - Minimum of three failed multiple trials of monotherapy. 2 - Documented plan to taper to monotherapy due to previous use of multiple meds OR cross-taper in progress at D/C. 3 - Documentation of augmentation of Clozapine. 4 - Justification other than those listed in allowable values 1-3, document here : Discharge Discharge Date: Apr 03, 2017 Discharge Diagnosis: (1) Schizophrenia Diagnosis: Principal (improved versus admission) ICD Code: F20.9 (2) Use of cannabis Diagnosis: Secondary (counseled to quit) ICD Code: F12.90 GAF 55 Mental Status Exam at Disch Patient is casually dressed. She is fairly well groomed and maintaining basic hygiene. She is awake and alert and oriented 3. No evidence of delirium. No abnormal motor movements noted. Speech is within normal limits for rate, tone and volume. Language and fund of knowledge seem average. Focus and concentration intact. Memory grossly intact on clinical exam. Mood reportedly good and affect much more full and reactive versus admission. Thought process generally linear although there is some ongoing thought blocking. No loosening of associations. No delusions elicited. Denies audiovisual hallucinations but remains little internally preoccupied. Denies suicidal or homicidal ideation, intent or plan. Insight and judgment are poor. Pt Condition on Discharge: Stable Discharge Disposition: Discharge Home Discharge Instructions Diet Instructions: As Tolerated, No Restrictions Activities you can perform: Weight Bearing as Supriya Scheduled Appointment: as per counselor's notes New Medications: Ziprasidone (Geodon) 60 Mg Cap 60 MG PO BIDPC Mental Health Days 15 Ref 1 CAP Discontinued Medications: Ibuprofen (Ibuprofen) 800 Mg Tab 800 MG PO Q6HR PRN PAIN #30 Ref 0 TAB Nitrofurantoin Monohydrate Macrocrystals (Macrobid) 100 Mg Cap 100 MG PO BID Infection Days 7 Ref 0 CAP Discharge Time > 30 minutes Discharge/Advance Care Plan Health Problems: (1) Schizophrenia (2) Use of cannabis Goals to promote your health * To prevent worsening of your condition and complications * To maintain your health at the optimal level Directions to meet your goals Take your medications as prescribed Follow your dietary instruction Follow activity as directed Keep your appointments as scheduled Take your immunizations and boosters as scheduled If your symptoms worsen call your PCP, if no PCP go to Urgent Care Center or Emergency Room For 10/04 questions related to your inpatient stay or results of tests pending at discharge, please contact Dr. Ion Perez at Smoking is Dangerous to Your Health. Avoid second hand smoking Problem Qualifiers (1) Schizophrenia: Qualified Code: F20.0 - Paranoid schizophrenia Ion Perez MD Apr 03, 2017 12:53
[2017-04-03] MEDS ORDERED: ZIPRASIDONE HCL 80 MG CAP PO SCH (18:00)
== END 2017-04-03 14:10 | disposition home or self-care (01) | DRG 885 ==
LOC: NED 01:03 → NEDA 15:55 → H260 17:05
PROVIDERS: ADMIT Psychiatry & Neurology Psychiatry; ATTEND Psychiatry & Neurology Psychiatry
DX: F20.0 Paranoid schizophrenia (principal); Z68.42 Body mass index [BMI] 45.0-49.9, adult; E66.9 Obesity, unspecified; F41.9 Anxiety disorder, unspecified; F32.9 Major depressive disorder, single episode, unspecified; F17.210 Nicotine dependence, cigarettes, uncomplicated; F12.90 Cannabis use, unspecified, uncomplicated; Z59.0 Homelessness; Z81.8 Family history of other mental and behavioral disorders
CPT/HCPCS: 80053; 80307; 84703; 85025; 99285; Q0163

== ENCOUNTER 2017-04-11 02:00 | Inpatient (IN) | payer MEDICARE ==
[~2017-04-11] VITALS: Ht 160 cm; Wt 125.0 kg
[~2017-04-11 02:00] MED LIST changes: +GEOD60CA PO; -IBUP800T23 PO; -MACR100C2 PO
[2017-04-11 02:01] VITALS: BP 131/84; PULSE 106; RESP 16; TEMP 98.9; O2SAT 97
--- NOTE | 2017-04-11 02:55 | PD ---
HPI Chief Complaint: Psychiatric Symptoms Time Seen by Provider: 02:52 Travel History International Travel<30 days: No Contact w/Intl Traveler<30days: No Traveled to known affect area: No History of Present Illness HPI Patient comes in requesting to see a psychiatrist. Patient states she is hearing voices. Patient denies any homicidal or suicidal ideations. Patient only medical complaints states she's been having difficulty urinating since yesterday. Denies any dysuria, abdominal pain, vaginal discharge, back pain, fevers, nausea, vomiting, fevers, chills, chest pain, shortness of breath, or . Patient states she took [id number] medications a pink pill for her urinary symptoms with no improvement. Patient denies anything making it worse. Patient is slow to answer questions and sometimes only shaking her head yes or no causing some limitations to the H&P. PFSH Past Medical History Hx Anticoagulant Therapy: No Blood Disorders: No Bipolar Disorder: Yes Anxiety: Yes Depression: Yes Cancer: No Cardiovascular Problems: No Cerebrovascular Accident: No Diabetes: Yes (PER PATIENT , NO MEDICATION) Patient Takes Glucophage: No Diminished Hearing: No Endocrine: No Gastrointestinal Disorders: No Genitourinary: No Headaches: No Hypertension: Yes Immune Disorder: No Musculoskeletal: No Neurologic: No Psychiatric: Yes Reproductive: No Respiratory: No Immunizations Current: No (UNKNOWN) Schizophrenia: Yes Seizures: No Tetanus Vaccination: Unknown Influenza Vaccination: No ?: Unknown LMP: UNK PER PATIENT : 6 Para: 6 Miscarriage: 0 : 0 Past Surgical History Section: Yes (X 2) Hysterectomy: No Other Surgery: Yes (hand surgery) Social History Alcohol Use: No Tobacco Use: Yes Substance Use: No Allergies-Medications (Allergen,Severity, Reaction): Coded Allergies: No Known Allergies (Verified , 04/11/17) Reported Meds & Prescriptions Reported Meds & Active Scripts Active Keflex (Cephalexin) 500 Mg Cap 500 Mg PO Q8H Geodon (Ziprasidone) 60 Mg Cap 60 Mg PO BIDPC 15 Days Review of Systems Except as stated in HPI: all other systems reviewed are Neg Physical Exam Narrative GENERAL: Well-developed, overly nourished, in no acute distress, and non-ill appearing. SKIN: Focused skin assessment warm and dry. HEAD: Atraumatic. Normocephalic. EYES: Pupils equal and round. EOMI. No scleral icterus. No injection or drainage. ENT: No nasal bleeding or discharge. Mucous membranes pink and moist. NECK: Trachea midline. Supple. No nuclear rigidity. CARDIOVASCULAR: Regular rate and rhythm. No murmur appreciated. RESPIRATORY: No accessory muscle use. No respiratory distress. Clear to auscultation. Breath sounds equal bilaterally. GASTROINTESTINAL: Abdomen soft, non-tender, nondistended, and no guarding. Hepatic and splenic margins not palpable. Normal bowel sounds 4. No pulsatile mass. MUSCULOSKELETAL: No obvious deformities. No clubbing. No cyanosis. No edema. Full range of motion. NEUROLOGICAL: Awake and alert. No obvious cranial nerve deficits. Motor grossly within normal limits. Normal speech. PSYCHIATRIC: Insight and judgment normal. Data Data Last Documented VS Vital Signs Date Time Temp Pulse Resp B/P Pulse Ox O2 Delivery O2 Flow Rate FiO2 04/11/17 02:01 98.9 106 16 131/84 97 Room Air Orders Urinalysis - C+S If Indicated (04/11/17 02:51) Ed Urine Pregnancytest Poc (04/11/17 02:51) Psych Screen (04/11/17 02:55) Urine Culture (04/11/17 02:35) Cephalexin (Keflex) (04/11/17 03:45) Labs Laboratory Tests Test 04/11/17 02:35 Urine Color YELLOW Urine Turbidity HAZY Urine pH 5.5 Urine Specific [place] 1.028 Urine Protein TRACE mg/dL Urine Glucose (UA) NEG mg/dL Urine Ketones NEG mg/dL Urine Occult Blood NEG Urine Nitrite NEG Urine Bilirubin NEG Urine Urobilinogen 2.0 MG/DL Urine Leukocyte Esterase MOD Urine RBC 1 /hpf Urine WBC 9 /hpf Urine Squamous Epithelial 4 /hpf Cells Urine Bacteria RARE /hpf Urine Mucus FEW /lpf Microscopic Urinalysis Comment CULTURE INDICATED MDM Medical Decision Making Medical Screen Exam Complete: Yes Emergency Medical Condition: Yes Differential Diagnosis [place], renal calculi, , ectopic , psychiatric evaluation, other Narrative Course Patient was seen and examined. Labs were obtained and reviewed. Patient started on Keflex for her UTI. Patient medically cleared for further treatment and evaluation by psych. Final disposition per psych. Diagnosis Primary Impression: UTI (urinary tract infection) Qualified Code: N39.0 - Urinary tract infection without hematuria, site unspecified Additional Impression: Medical clearance for psychiatric admission Patient Instructions: General Instructions, Urinary Tract Infection in Women ( ED) Additional Instructions: Follow-up with your primary care physician in 5-7 days for reevaluation of your urinary tract infection. Take all medication as prescribed. Return to the emergency department if symptoms get worse. Scripts Cephalexin (Keflex)500 Mg [id number] Mg PO Q8H #30 CAP Ref 0 Prov:Francisco Fall MD 04/11/17 Condition: Stable Yordy Jones Apr 11, 2017 02:55
[2017-04-11 03:36] LABS: BACTERIA, URINE RARE /hpf; BLOOD, URINE NEG (NEG); COMMENT (UR) CULTURE INDICATED; CULTURE IF INDICATED CULTURE INDICATED; GLUCOSE,URINE NEG (NEG); KETONE, URINE NEG (NEG); MUCUS URINE FEW /lpf (OCC); NITRITE,URINE NEG (NEG); PH, URINE 5.5 (5.0-8.5); SQUAMOUS EPITHELIAL CELL URINE 4 /hpf (0-5); URINE COLOR YELLOW (YELLW/STRAW)
[2017-04-11] MEDS ORDERED: CEPH-460 PO (03:40)
[2017-04-11] MEDS ORDERED: CEPHALEXIN MONOHYDRATE 500 MG CAP PO ONE (03:45)
[2017-04-11 05:48] VITALS: BP 115/66; PULSE 76; RESP 16; TEMP 98.2; O2SAT 97
[2017-04-11 11:19] VITALS: BP 107/69; PULSE 68; RESP 18; O2SAT 99
[2017-04-11] MEDS ORDERED: MAGNESIUM HYDROXIDE SUSP 30 ML CUP PO PRN (12:15)
[2017-04-11] MEDS ORDERED: diphenhydrAMINE HCL 50 MG CAP PO PRN (12:15)
[2017-04-11] MEDS ORDERED: ACETAMINOPHEN 325 MG TAB PO PRN (12:15)
[2017-04-11] MEDS ORDERED: ALUMINUM/MAGNESIUM/SIMETH 30 ML CUP PO PRN (12:15)
[2017-04-11] MEDS ORDERED: BENZTROPINE MESYLATE 2 MG/2 ML VIAL IM PRN (12:15)
[2017-04-11] MEDS ORDERED: LORazepam 1 MG TAB PO PRN (12:15)
[2017-04-11] MEDS ORDERED: LORazepam 2 MG/ML VIAL IM PRN (12:15)
[2017-04-11] MEDS ORDERED: BENZTROPINE MESYLATE 1 MG TAB PO PRN (12:15)
[2017-04-11 16:00] VITALS: BP 125/67; PULSE 68; RESP 18; TEMP 97.7; O2SAT 97
[2017-04-11] MEDS: ZIPRASIDONE HCL 60 MG CAP PO SCH (18:00)
[2017-04-11] MEDS: NITROFURANTOIN MONOHYD MACROCR 100 MG CAP PO SCH (18:00)
[2017-04-12 06:00] VITALS: BP 102/67; PULSE 61; RESP 18; TEMP 97.9
[2017-04-12 06:18] VITALS: BP 102/67; PULSE 61; RESP 16; TEMP 97.9; O2SAT 95
[2017-04-12] MEDS: REMOVE OLD PATCH T-DERMAL SCH (09:00)
[2017-04-12 09:02] LABS: ALT (GPT) 28 U/L (10-53); ANION GAP 8 MEQ/L (5-15); AST (GOT) 19 U/L (15-37); CHLORIDE 108 MEQ/L (98-107); GLOMERULAR FILTRATION RATE 111 ML/MIN (>89); POTASSIUM 3.7 MEQ/L (3.5-5.1); SODIUM (NA) 140 MEQ/L (136-145)
[2017-04-12 09:04] LABS: ALKALINE PHOSPHATASE 88 U/L (45-117); TOTAL BILIRUBIN ADULT 0.2 MG/DL (0.2-1.0)
[2017-04-12] MEDS: NICOTINE 21 MG/24 HR PATCH T-DERMAL SCH (09:37)
[2017-04-12] MEDS: NITROFURANTOIN MONOHYD MACROCR 100 MG CAP PO SCH ×2 (09:37→18:00)
[2017-04-12] MEDS: ZIPRASIDONE HCL 60 MG CAP PO SCH (09:37)
[2017-04-12 09:45] LABS: BLOOD UREA NITROGEN 6 MG/DL (7-18)
[2017-04-12 12:12] LABS: AUTOMATED NEUTROPHIL # 2.2 TH/MM3 (1.8-7.7); EOSINOPHIL # 0.3 TH/MM3 (0-0.4); HEMATOCRIT 36.1 % (35.0-46.0); HEMO FLAGS DIFF FINAL; LYMPHOCYTE # 1.7 TH/MM3 (1.0-4.8); MEAN CELL VOLUME 86.3 FL (80.0-100.0); MEAN CORPUSCULAR HEMOGLOBIN 29.3 PG (27.0-34.0); MEAN CORPUSCULAR HGB CONC 33.9 % (32.0-36.0); MONO % 10.9 % (0.0-8.0); NEUT % 46.1 % (16.0-70.0); PLATELET COUNT 223 TH/MM3 (150-450); RED BLOOD COUNT 4.18 MIL/MM3 (4.00-5.30); RED CELL DISTRIBUTION WIDTH 15.4 % (11.6-17.2); WHITE BLOOD COUNT 4.7 TH/MM3 (4.0-11.0)
[2017-04-12] MEDS ORDERED: ACETAMINOPHEN 325 MG TAB PO PRN (13:30)
[2017-04-12] MEDS ORDERED: ALUMINUM/MAGNESIUM/SIMETH 30 ML CUP PO PRN (13:30)
[2017-04-12] MEDS ORDERED: MAGNESIUM HYDROXIDE SUSP 30 ML CUP PO PRN (13:30)
[2017-04-12] MEDS ORDERED: diphenhydrAMINE HCL 50 MG CAP PO PRN (13:30)
[2017-04-12] MEDS ORDERED: hydrOXYzine HCL 50 MG TAB PO PRN (13:30)
--- NOTE | 2017-04-12 13:32 | HHI.HP ---
Provisional Diagnosis Admission Date Apr 11, 2017 at 12:05 [place] I. Schizophrenia chronic paranoid type f 20.0 Certification of Person's Competence To Provide Express and Informed Consent I have personally examined Estrella Moran , a person being served at [facility] on, Apr 12, 2017 13:20. Express and informed consent means consent voluntarily given in writing, by a competent person, after sufficient explanation and disclosure of the subject matter involved to enable the person to make a knowing and willful decision without any element of force, fraud, deceit, duress, or other form of constraint or coercion. This person is 18 years of age or older, is not now known to be incompetent to consent to treatment with a guardian advocate, and does not have a health care surrogate or proxy currently making medical treatment decisions. I have found this person to be one of the following: [xxx] Competent to provide express and informed consent, as defined above, for voluntary admission to this facility and is competent to provide express and informed consent for treatment. He/she has the consistent capacity to make well reasoned, willful, and knowing decisions concerning his or her medical or mental health treatment. The person fully and consistently understands the purpose of the admission for examination/placement and is fully capable of personally exercising all rights assured [place] Incompetent to provide express and informed consent to voluntary admission, and this is incompetent to provide express and informed consent to treatment. The person must be transferred to involuntary status and a petition for a guardian advocate filed with the Circuit Court. [] Refusing to provide express and informed consent to voluntary admission but is competent to provide express and informed consent for treatment. The person must be discharged or transferred to involuntary status. Form shall be completed within 24 hours of a person's arrival at the receiving facility and filed in the clinical record of each person: 1. Admitted on a voluntary basis 2. Permitted to provide express and informed consent to his/her own treatment 3. Allowed to transfer from involuntary to voluntary status 4. Prior to permitting a person to consent to his or her own treatment after having been previously found incompetent to consent to treatment. History of Present Illness Capacity: Has Capacity HPI Patient is a 31-year-old Afro-[place] female well known to us from multiple prior hospitalizations most recently being about a week ago which was discharged on Geodon 60 mg twice a day. Came to the ER complaining of urinary tract symptoms, which she does have. She hasn't complained auditory hallucinations there is some confusing story related to living situation. Making vague suicidal statements also. No urine toxicology done, no test done. At the present time patient laying quietly in her bed in her room and 2600. Counselor Alia present throughout session. Patient in bed with covers to her chin she is quite guarded somewhat vigilant. Responses are markedly delayed with significant thought blocking. She does reluctantly acknowledge auditory hallucinations of a somewhat frightening to her and intimidating. She is somewhat vague about suicidality. Or homicidality. She is also vague about compliance with the medication. It appears she is living with her brother. She denies any alcohol or drug use since her discharge. In any event at the present time patient does meet criteria for acute inpatient hospitalization. She remains quite psychotic and somewhat paranoid at this time we will increase her Geodon from 60 mg twice a day to 80 mg twice a day. Upon review of her EMR patient had a brief trial of Respinol 2008 from the time she delivered one of her children. There perhaps need to consider reinstituting that anticipation of a possible long-acting injection. Review of Systems Constitutional: DENIES: Diaphoretic episodes, Fatigue, Fever, Weight gain, Weight loss, Chills, Dizziness, Change in appetite, Night Sweats Endocrine: DENIES: Abnorml menstrual pattern, Heat/cold intolerance, Polydipsia , Polyuria, Polyphagia Eyes: DENIES: Blurred vision, Diplopia, Eye inflammation, Eye pain, Vision loss , Photosensitivity, Double Vision Ears, nose, mouth, throat: DENIES: Tinnitus, Hearing loss, Vertigo, Nasal discharge, Oral lesions, Throat pain, Hoarseness, Ear Pain, Running Nose, Epistaxis, Sinus Pain, Toothache, Odynophagia Respiratory: DENIES: Apneas, Cough, Snoring, Wheezing, Hemoptysis, Sputum production, Shortness of breath Cardiovascular: DENIES: Chest pain, Palpitations, Syncope, Dyspnea on Exertion , PND, Lower Extremity Edema, Orthopnea, Claudication Gastrointestinal: DENIES: Abdominal pain, Black stools, Bloody stools, Constipation, Diarrhea, Nausea, Vomiting, Difficulty Swallowing, Anorexia Genitourinary: DENIES: Abnormal vaginal bleeding, Dysmenorrhea, Dyspareunia, Sexual dysfunction, Urinary frequency, Urinary incontinence, Urgency, Hematuria , Dysuria, Nocturia, Vaginal discharge Musculoskeletal: COMPLAINS OF: Joint pain, Muscle aches, Stiffness, Joint Swelling, Back pain, Neck pain Integumentary: DENIES: Abnormal pigmentation, Pruritus, Rash, Nail changes, Breast masses, Breast skin changes, Nipple discharge Hematologic/lymphatic: DENIES: Bruising, Lymphadenopathy Immunologic/allergic: DENIES: Eczema, Urticaria Neurologic: DENIES: Abnormal gait, Headache, Localized weakness, Paresthesias, Seizures, Speech Problems, Tremor, Poor Balance Psychiatric: COMPLAINS OF: Hallucinations, Suicidal Ideation Past Psych History Psychological trauma history Patient unable answer due to her psychosis Violence risk - others (6 mos) Low Violence risk - self (6 mos) Patient vague suicidal statements Substance Abuse History Drugs/Alcohol past 12 months Denies though there is a history of marijuana abuse Past Family Social History Coded Allergies: No Known Allergies (Verified , 04/11/17) Past Medical History Patient medically cleared ED though has positive urinalysis Active Scripts Cephalexin (Keflex)500 Mg [id number] Mg PO Q8H #30 CAP Ref 0 Prov:Francisco Fall MD 04/11/17 Ziprasidone (Geodon)60 Mg Cap60 Mg PO BIDPC 15 Days Ref 1 Prov:Ion Perez MD 04/03/17 Current Medications Medications (Trade) Dose Ordered Sig/Sandra Route Start Time Stop Time Status Last Admin (Geodon) 60 mg BIDPC PO 04/11/17 18:00 04/12/17 09:37 (Ativan) 1 mg Q6H PRN PO 04/11/17 12:15 (Ativan Inj) 1 mg Q6H PRN IM 04/11/17 12:15 (Benadryl) 50 mg HS PRN PO 04/11/17 12:15 (Tylenol) 650 mg Q4H PRN PO 04/11/17 12:15 (Milk Of Magnesia Liq) 30 ml DAILY PRN PO 04/11/17 12:15 (Mag-Al Plus Susp Liq) 30 ml Q6H PRN PO 04/11/17 12:15 (Habitrol 21 Mg Patch.24 Hr) 1 patch DAILY T-DERMAL 04/12/17 09:00 04/12/17 09:37 (Cogentin) 1 mg Q12H PRN PO 04/11/17 12:15 (Cogentin Inj) 1 mg Q12H PRN IM 04/11/17 12:15 Miscellaneous Information 1 DAILY T-DERMAL 04/12/17 09:00 04/12/17 09:00 (Macrobid) 100 mg BIDPC PO 04/11/17 18:00 04/18/17 17:59 04/12/17 09:37 Family History Patient vague about any mental health history and family Social History Patient states she lives there brother Patient's Strengths (min. 2) Patient will ask his healthcare appears to have supportive family Physical Exam Patient seen screened in ED cleared in the ED. At the present time patient sitting quietly in her room she is in no acute distress, she is in no respiratory distress. No complaints of abdominal pain. Patient moves all 4 extremities without difficulty. No abnormal motor movements noted. Vital Signs Vital Signs Date Time Temp Pulse Resp B/P Pulse Ox O2 Delivery O2 Flow Rate FiO2 04/12/17 06:18 97.9 61 16 102/67 95 04/11/17 11:19 Room Air Mental Status Examination Patient alert Afro-[place] female laying quietly in her room covers to her chin marked thought blocking very reluctant to answer questions Appearance Somewhat disheveled Speech: Hesitant, Slow, Tangential Orientation: Person, Place Memory: Unremarkable (poor) Thought Process: Loose Association Thought Content: Paranoid Language Poor Fund of Knowledge Poor Hallucination Type: Auditory (command) Attention and Concentration: Other (poor) Suicidal Ideation: Yes (vague) Previous Suicide Attempts: No (unknown at this time) Homicidal Ideation: No (unknown) Previous Homicide Attempts: No (unknown) Insight: Poor Judgment: Poor Affect: Other (decreased range and intensity) Mood: Sad, Other (restricted) Motor Activity: Normal gait (patient laying in bed and able to ascertain gait) Assessment & Plan Problem List: (1) Schizophrenia ICD Code: F20.9 Assessment & Plan Estimated LOS: 5-7 days this time patient meets criteria for acute inpatient psychiatric hospitalization on a voluntary basis will increase her scheduled Geodon to 80 mg twice a day consideration of possible switching to a long- acting intramuscular. We will attempt to get further information from her family related to the behaviors since her recent discharge from [facility] Discharge Planning To be determined Request HC Surrog/Guard Advoc?: No Problem Qualifiers (1) Schizophrenia: Qualified Code: F20.0 - Paranoid schizophrenia Zechariah Xavier MD Apr 12, 2017 13:31
[2017-04-12] MEDS: CEPHALEXIN MONOHYDRATE 500 MG CAP PO SCH ×2 (16:20→22:00)
[2017-04-12] MEDS: ZIPRASIDONE HCL 80 MG CAP PO SCH (18:00)
[2017-04-12 19:20] VITALS: BP 124/76; PULSE 81; RESP 20; TEMP 98.1; O2SAT 98
[2017-04-13 06:23] VITALS: BP 140/82; PULSE 74; RESP 18; TEMP 98.2
[2017-04-13] MEDS: CEPHALEXIN MONOHYDRATE 500 MG CAP PO SCH ×3 (06:27→21:15)
[2017-04-13] MEDS: REMOVE OLD PATCH T-DERMAL SCH (09:00)
[2017-04-13] MEDS: ZIPRASIDONE HCL 80 MG CAP PO SCH ×2 (09:22→18:20)
[2017-04-13] MEDS: NITROFURANTOIN MONOHYD MACROCR 100 MG CAP PO SCH ×2 (09:23→18:20)
[2017-04-13] MEDS: NICOTINE 21 MG/24 HR PATCH T-DERMAL SCH (09:32)
--- NOTE | 2017-04-13 12:13 | HHI.PYPN ---
Subjective Remarks Patient seen in her room with floor staff, chart review, patient compliant medication. Patient continues to isolate, in bed with covers her chin. She continues with marked thought blocking as if responding to internal stimuli. She is also vague about any continued suicidality She continues with poor eye contact. She also continues to show some disorganization when discussing possible discharge and placement with family. Review of Systems Except as stated in HPI: all other systems reviewed are Neg Objective Alert: Yes [place]: Person Mood: Depressed, Other (guarded) Affect: Restricted Memory Intact: Comment (poor) Hallucinations: Auditory (vague) Delusions: Yes Delusion Type: Paranoid Suicidal: Ideation (vague) Homicidal: Ideation Insight/Judgment Poor Labs Date/Time Procedure Status Source Growth 04/11/17 02:35 Urine Culture - Final Complete Urine Random Urine 50-100,000 CFU/ML MIXED GRAM POSITIVE... Vitals/IOs Vital Signs Date Time Temp Pulse Resp B/P Pulse Ox O2 Delivery O2 Flow Rate FiO2 04/13/17 06:23 98.2 74 18 140/82 04/12/17 19:20 98 04/11/17 11:19 Room Air Intake and Output 04/12/17 04/12/17 04/13/17 08:00 16:00 00:00 Intake Total 240 ml Balance 240 ml Assessment & Plan Problem List: (1) Schizophrenia ICD Code: F20.9 Assessment & Plan Estimated LOS: days patient continues psychotic isolating and quite vigilant. She is compliant with her medications Justification for Cont. Inpt. At this time patient will decompensate if placed in a lower level of care Discharge Planning To be determined Request HC Surrog/Guard Advoc?: No Problem Qualifiers (1) Schizophrenia: Qualified Code: F20.0 - Paranoid schizophrenia Zechariah Xavier MD Apr 13, 2017 12:12
[2017-04-13 16:30] VITALS: BP 114/73; PULSE 73; RESP 18; TEMP 98.6; O2SAT 99
[2017-04-14 05:49] VITALS: BP 168/92; PULSE 85; RESP 17; TEMP 97.7; O2SAT 92
[2017-04-14] MEDS: CEPHALEXIN MONOHYDRATE 500 MG CAP PO SCH ×3 (05:58→22:00)
[2017-04-14] MEDS: NITROFURANTOIN MONOHYD MACROCR 100 MG CAP PO SCH ×2 (08:19→17:33)
[2017-04-14] MEDS: ZIPRASIDONE HCL 80 MG CAP PO SCH ×2 (08:19→17:33)
[2017-04-14] MEDS: NICOTINE 21 MG/24 HR PATCH T-DERMAL SCH (08:19)
[2017-04-14] MEDS: REMOVE OLD PATCH T-DERMAL SCH (08:22)
[2017-04-14] MEDS ORDERED: CEPH500C PO (12:23)
[2017-04-14] MEDS ORDERED: GEOD80CA PO (12:23)
[2017-04-14] MEDS ORDERED: NITR100C4 PO (12:23)
--- NOTE | 2017-04-14 12:29 | HHI.DS ---
Psychiatry Discharge Summary Inpatient Psychiatric care?: Yes Advance Directive: No Reason Not Provided: Due to Patient Condition Mental Health AdvanceDirective: No Health Care Proxy: No Admission Admission Date Apr 11, 2017 at 12:05 Admission Diagnosis: (1) Schizophrenia ICD Code: F20.9 Brief History Patient is a 31-year-old Afro-[place] female well known to us from multiple prior hospitalizations most recently being about a week ago which was discharged on Geodon 60 mg twice a day. Came to the ER complaining of urinary tract symptoms, which she does have. She hasn't complained auditory hallucinations there is some confusing story related to living situation. Making vague suicidal statements also. No urine toxicology done, no test done. At the present time patient laying quietly in her bed in her room and 2600. Counselor Alia present throughout session. Patient in bed with covers to her chin she is quite guarded somewhat vigilant. Responses are markedly delayed with significant thought blocking. She does reluctantly acknowledge auditory hallucinations of a somewhat frightening to her and intimidating. She is somewhat vague about suicidality. Or homicidality. She is also vague about compliance with the medication. It appears she is living with her brother. She denies any alcohol or drug use since her discharge. In any event at the present time patient does meet criteria for acute inpatient hospitalization. She remains quite psychotic and somewhat paranoid at this time we will increase her Geodon from 60 mg twice a day to 80 mg twice a day. Upon review of her EMR patient had a brief trial of Respinol 2008 from the time she delivered one of her children. There perhaps need to consider reinstituting that anticipation of a possible long-acting injection. Tobacco Use In Past 30 Days: 5 or More Cigarettes/Day Alcohol Use: Never Hospital Course Patient course the house wasn't uneventful. She show compliance with medication from the onset. She initially showed isolation spending much time in bed though no other significant behavioral problems. Today she is up dressed and in the day room, she is calm cooperative reactive with good eye contact occasional small smile. She denies suicidality homicidality voices or visions. She agrees to be compliant with the medications in the community, and follow-up with mental health services in the community. Thus the present time I feel patient no longer meets criteria for inpatient psychiatric care. She will be discharged today. Rx 1 month. Follow-up [facility] to roll the facility in the community to be arranged by counselor Results Blood Pressure 168 / 92 Vital Signs Date Time Temp Pulse Resp B/P Pulse Ox O2 Delivery O2 Flow Rate FiO2 04/14/17 05:49 97.7 85 17 168/92 92 04/11/17 11:19 Room Air Laboratory Tests Test 04/12/17 04/12/17 07:20 11:53 Chloride Level 108 MEQ/L (98-107) Blood Urea Nitrogen 6 MG/DL (7-18) Calcium Level 8.0 MG/DL (8.5-10.1) Total Protein 6.2 GM/DL (6.4-8.2) Albumin 3.1 GM/DL (3.4-5.0) Monocytes (%) (Auto) 10.9 % (0.0-8.0) Eosinophils (%) (Auto) 7.0 % (0.0-4.0) Summary of Procedures None done Pending results at discharge: No Medications # of Antipsychotic meds at D/C: 1 Approp Antipsych med options 1 - Minimum of three failed multiple trials of monotherapy. 2 - Documented plan to taper to monotherapy due to previous use of multiple meds OR cross-taper in progress at D/C. 3 - Documentation of augmentation of Clozapine. 4 - Justification other than those listed in allowable values 1-3, document here : Discharge Discharge Date: Apr 14, 2017 Discharge Diagnosis: (1) Schizophrenia Diagnosis: Principal ICD Code: F20.9 Mental Status Exam at Disch Alert oriented female, she is normal active mildly hypoactive, per mood is euthymic to somewhat restricted with decreased range and intensity of her affect. Speech rate and rhythm is slow goal oriented thin no formal thought disorders. No auditory or visual hallucinations. No delusions. Insight and judgment is poor to fair. Cognition grossly intact Pt Condition on Discharge: Stable Discharge Disposition: Discharge Home Discharge Instructions Diet Instructions: As Tolerated, No Restrictions Activities you can perform: Regular-No Restrictions [facility] Discharge/Advance Care Plan Health Problems: (1) Schizophrenia Goals to promote your health * To prevent worsening of your condition and complications * To maintain your health at the optimal level Directions to meet your goals Take your medications as prescribed Follow your dietary instruction Follow activity as directed Keep your appointments as scheduled Take your immunizations and boosters as scheduled If your symptoms worsen call your PCP, if no PCP go to Urgent Care Center or Emergency Room For 10/04 questions related to your inpatient stay or results of tests pending at discharge, please contact Dr. Zechariah Xavier at Smoking is Dangerous to Your Health. Avoid second hand smoking Problem Qualifiers (1) Schizophrenia: Qualified Code: F20.0 - Paranoid schizophrenia Zechariah Xavier MD Apr 14, 2017 12:29
[2017-04-15 06:03] VITALS: BP 110/71; PULSE 69; RESP 16; TEMP 97.4; O2SAT 100
[2017-04-15] MEDS: CEPHALEXIN MONOHYDRATE 500 MG CAP PO SCH ×3 (06:07→22:00)
[2017-04-15] MEDS: REMOVE OLD PATCH T-DERMAL SCH (09:00)
[2017-04-15] MEDS: NICOTINE 21 MG/24 HR PATCH T-DERMAL SCH (09:00)
[2017-04-15] MEDS: NITROFURANTOIN MONOHYD MACROCR 100 MG CAP PO SCH ×2 (10:28→18:58)
[2017-04-15] MEDS: ZIPRASIDONE HCL 80 MG CAP PO SCH ×2 (10:28→18:59)
--- NOTE | 2017-04-15 16:10 | HHI.PYPN ---
Subjective Remarks Pt was seen and discussed with staff. Discharge yesterday was cancelled after safe disposition could not be determined. Pt has been compliant with medications and she denies side effects. There is some disorganization in thought process and behavior present. No SI/HI Objective Alert: Yes [place]: Person, Place Mood: Calm, Other (guarded) Affect: Restricted Memory Intact: Comment (fair) Hallucinations: Other (none) Delusions: Yes Delusion Type: Paranoid Suicidal: Ideation (vague) Homicidal: Ideation Insight/Judgment poor Remarks disheveled, disorganization in thought process Labs Date/Time Procedure Status Source Growth 04/11/17 02:35 Urine Culture - Final Complete Urine Random Urine 50-100,000 CFU/ML MIXED GRAM POSITIVE... Vitals/IOs Vital Signs Date Time Temp Pulse Resp B/P Pulse Ox O2 Delivery O2 Flow Rate FiO2 04/15/17 06:03 97.4 69 16 110/71 100 04/11/17 11:19 Room Air Assessment & Plan Problem List: (1) Schizophrenia ICD Code: F20.9 Assessment & Plan Continue current tx plan. Continue disposition planning Estimated LOS: days Justification for Cont. Inpt. impairments in self care Request HC Surrog/Guard Advoc?: No Problem Qualifiers (1) Schizophrenia: Qualified Code: F20.0 - Paranoid schizophrenia Karla Case MD Apr 15, 2017 16:10
[2017-04-15 18:44] VITALS: BP 144/88; PULSE 84; RESP 16; TEMP 98.1; O2SAT 98
[2017-04-16] MEDS: CEPHALEXIN MONOHYDRATE 500 MG CAP PO SCH ×3 (06:00→20:16)
[2017-04-16 06:14] VITALS: BP 145/84; PULSE 63; RESP 18; TEMP 98.3; O2SAT 100
[2017-04-16] MEDS: ZIPRASIDONE HCL 80 MG CAP PO SCH ×2 (08:45→18:10)
[2017-04-16] MEDS: NICOTINE 21 MG/24 HR PATCH T-DERMAL SCH (08:45)
[2017-04-16] MEDS: NITROFURANTOIN MONOHYD MACROCR 100 MG CAP PO SCH ×2 (08:45→18:10)
[2017-04-16] MEDS: REMOVE OLD PATCH T-DERMAL SCH (08:47)
--- NOTE | 2017-04-16 15:44 | HHI.PYPN ---
Subjective Remarks Pt seen and discussed with staff. No behavioral problems on unit. She has been out in milieu and engaging in hygiene activities. She denies AVH. Objective Alert: Yes [place]: Person, Place Mood: Calm, Other (guarded) Affect: Restricted Memory Intact: Comment (fair) Hallucinations: Other (none) Delusions: Yes Delusion Type: Paranoid (mild) Suicidal: Ideation (vague) Homicidal: Ideation Insight/Judgment limited Vitals/IOs Vital Signs Date Time Temp Pulse Resp B/P Pulse Ox O2 Delivery O2 Flow Rate FiO2 04/16/17 06:14 98.3 63 18 145/84 100 Assessment & Plan Problem List: (1) Schizophrenia ICD Code: F20.9 Assessment & Plan Continue current tx plan and discharge planning Estimated LOS: days Justification for Cont. Inpt. risk of decompensation Request HC Surrog/Guard Advoc?: No Problem Qualifiers (1) Schizophrenia: Qualified Code: F20.0 - Paranoid schizophrenia Karla Case MD Apr 16, 2017 15:44
[2017-04-16 16:56] VITALS: BP 131/104; PULSE 83; RESP 16; TEMP 98.1; O2SAT 99
[2017-04-16 20:25] VITALS: BP 127/91; PULSE 75
[2017-04-17 06:00] VITALS: BP 116/64; PULSE 65; RESP 17; TEMP 97.9; O2SAT 99
[2017-04-17] MEDS: CEPHALEXIN MONOHYDRATE 500 MG CAP PO SCH (06:02)
[2017-04-17] MEDS: REMOVE OLD PATCH T-DERMAL SCH (09:00)
[2017-04-17] MEDS: NITROFURANTOIN MONOHYD MACROCR 100 MG CAP PO SCH (09:09)
[2017-04-17] MEDS: ZIPRASIDONE HCL 80 MG CAP PO SCH (09:09)
[2017-04-17] MEDS: NICOTINE 21 MG/24 HR PATCH T-DERMAL SCH (09:10)
--- NOTE | 2017-04-17 11:14 | HHI.PYPN ---
Subjective Remarks Patient to be discharged today and I ready to receive her with family. Patient had good weekend, no behavioral problems, calm pleasant with me today denies suicidality homicidality voices or visions patient to be discharged with follow- up per discharge instructions Review of Systems Except as stated in HPI: all other systems reviewed are Neg Objective Alert: Yes [place]: Person, Place Mood: Calm, Other (guarded) Affect: Restricted Memory Intact: Comment (fair) Hallucinations: Other (none) Delusions: Yes Delusion Type: Paranoid (mild) Suicidal: Ideation (vague) Homicidal: Ideation Insight/Judgment Poor Vitals/IOs Vital Signs Date Time Temp Pulse Resp B/P Pulse Ox O2 Delivery O2 Flow Rate FiO2 04/17/17 06:00 97.9 65 17 116/64 99 Assessment & Plan Problem List: (1) Schizophrenia ICD Code: F20.9 Assessment & Plan Estimated LOS: days patient did well of the weekends does not bed available with family today that patient be discharged today with Rx as mentioned on discharge summary Justification for Cont. Inpt. Patient to be discharged today Discharge Planning Discharged today Request HC Surrog/Guard Advoc?: No Problem Qualifiers (1) Schizophrenia: Qualified Code: F20.0 - Paranoid schizophrenia Zechariah Xavier MD Apr 17, 2017 11:14
== END 2017-04-17 12:50 | disposition home or self-care (01) | DRG 885 ==
LOC: NEPD 02:00 → NEDA 12:05 → H260 12:25 → UNDODISIN 04-14 13:30
PROVIDERS: ADMIT Psychiatry & Neurology Psychiatry; ATTEND Psychiatry & Neurology Psychiatry
DX: F20.0 Paranoid schizophrenia (principal); E11.9 Type 2 diabetes mellitus without complications; I10 Essential (primary) hypertension; Z72.0 Tobacco use
CPT/HCPCS: 80053; 81001; 84703; 85025; 87086